=== PATIENT | female | born 1980 | race American Indian/Alaskan Native ===

== ENCOUNTER 2017-06-28 15:36 | Emergency (ER) | payer BC, OTHER ==
[2017-06-28 15:37] VITALS: BMI 32.8
[2017-06-28 15:44] VITALS: BP 143/83; PULSE 60; RESP 16; TEMP 97.7; O2SAT 100
--- NOTE | 2017-06-28 16:47 | RAD ---
PROCEDURE: Radiographs of the Lumbar Spine. HISTORY: low back pain No antecedent history of trauma. COMPARISON: No prior. FINDINGS: BONES: Mild levoscoliosis. No acute osseous findings DISC SPACES: Unremarkable. OTHER FINDINGS: None. IMPRESSION: No acute findings related to/accounting for the clinical presentation.
--- NOTE | 2017-06-28 16:50 | C.PDOC ---
History Of Present Illness 37 y/o female presents to ED with complaints of low back pain. Patient states she works at [employer] and today around 12:30pm she was lifting a heavy stack of papers when she felt a sharp pain on her lower back. Patient reports pain is worse with rotational movement. She took Naproxen with no relief [employer]. Patient denies direct trauma, fever, cough, sob, bowel/bladder incontinence, urinary retention, sensory changes in legs. Time Seen by Provider: 06/28/17 15:45 Chief Complaint (Nursing): Back Pain History Per: Patient History/Exam Limitations: no limitations Onset/Duration Of Symptoms: Days Current Symptoms Are (Timing): Still Present Quality Of Discomfort: "Pain" Severity: Moderate Exacerbating Factor(s): Movement Past Medical History Reviewed: Historical Data, Nursing Documentation, Vital Signs Vital Signs: Last Vital Signs Temp 97.7 F 06/28/17 15:40 Pulse 60 06/28/17 15:40 Resp 16 06/28/17 15:40 BP 143/83 06/28/17 15:40 Pulse Ox 100 06/28/17 17:37 - Medical History PMH: No Chronic Diseases Family History: States: No Known Family Hx - Social History Hx Alcohol Use: No Hx Substance Use: No - Immunization History Hx Tetanus Toxoid Vaccination: No Hx Influenza Vaccination: No Hx Pneumococcal Vaccination: No Review Of Systems Except As Marked, All Systems Reviewed And Found Negative. Constitutional: Negative for: Fever, Chills Respiratory: Negative for: Cough, Shortness of Breath Gastrointestinal: Negative for: Nausea, Vomiting, Abdominal Pain Genitourinary: Negative for: Dysuria, Frequency, Incontinence Musculoskeletal: Positive for: Back Pain Skin: Negative for: Rash Neurological: Negative for: Weakness, Numbness Physical Exam - Physical Exam Appears: Well, Non-toxic, Other (In mild pain) Skin: Normal Color, Warm, Dry, No Rash Head: Normacephalic Eye(s): bilateral: Normal Inspection Oral Mucosa: Moist Chest: Symmetrical Cardiovascular: Rhythm Regular Respiratory: Normal Breath Sounds, No Rales, No Rhonchi, No Wheezing Gastrointestinal/Abdominal: Normal Exam, Bowel Sounds, Soft, No Tenderness Back: Normal Inspection, No CVA Tenderness, No Vertebral Tenderness, No Paraspinal Tenderness Extremity: Normal ROM, No Calf Tenderness, No Deformity, No Swelling Extremity: Bilateral: Atraumatic, Normal Color And Temperature, Normal ROM Neurological/Psych: Oriented x3, Normal Motor, Normal Sensation Gait: Steady ED Course And Treatment O2 Sat by Pulse Oximetry: 100 (RA) Pulse Ox Interpretation: Normal - Other Rad LS spine X-Ray: Interpreted by Me, Viewed By Me, Read By Radiologist Interpretation: FINDINGS: BONES: Mild levoscoliosis. No acute osseous findings. DISC SPACES: Unremarkable. OTHER FINDINGS: None. IMPRESSION: No acute findings related to/accounting for the clinical presentation. Progress Note: Patient requesting Xray of LS spine - ordered. IM toradol and PO Valium given. 17:45- On reassessment, patient's pain has improved, and she is well appearing and able to ambulate normally. Xray of LS spine (-) for acute bony injury. Patient given Rxs for Naprosyn, Valium, Vicodin (instructed not to mix Valium and Vicodin). She was instructed to follow up with PMD/ clinic in 1-2 days, and understands she should return to ED if symptoms worsen. Patient being picked up by . Reevaluation Time: 17:00 Reassessment Condition: Unchanged (Patient reassessed, reports no improvement in pain. PO vicodin ordered.) Disposition Counseled Patient/Family Regarding: Studies Performed, Diagnosis, Need For Followup, Rx Given - Disposition Referrals: [facility] [Outside] Disposition: HOME/ ROUTINE Disposition Time: 17:40 Condition: STABLE Additional Instructions: FOLLOW UP WITH YOUR DOCTOR IN 1-2 DAYS USE MEDICATION NEEDED FOR PAIN RETURN TO ER IF SYMPTOMS WORSEN DO NOT MIX VICODIN WITH VALIUM Prescriptions: diaZEpam [Valium] 5 mg PO TID PRN #12 tab PRN Reason: Muscle Spasm Hydrocodone/Acetaminophen [Hydrocodon-Acetaminophen 5-325] 1 each PO Q6 PRN #12 tablet PRN Reason: Pain, Moderate (4-7) Naproxen [Naprosyn] 1 tab PO BID PRN #25 tab PRN Reason: Pain Instructions: Acute Low Back Pain (ED), Muscle Spasm (ED) Forms: [facility] (Honduran), Work Excuse Print Language: CITIZEN OF [place] - POA Present On Arrival: None - Clinical Impression Clinical Impression: Low back pain, Muscle spasm - Scribe Statement The provider has reviewed the documentation as recorded by the Kelbyibsuri Scanlon All medical record entries made by the Scribe were at my direction and personally dictated by me. I have reviewed the chart and agree that the record accurately reflects my personal performance of the history, physical exam, medical decision making, and the department course for this patient. I have also personally directed, reviewed, and agree with the discharge instructions and disposition.
[2017-06-28] MEDS ORDERED: Hydrocodone/Acetaminophen 5 mg /300 mg Tab PO STA (17:01)
[2017-06-28] MEDS ORDERED: Hydrocodone/Acetaminophen 5 mg /300 mg Tab PO ONE (17:08)
== END 2017-06-28 17:46 | disposition home or self-care (01) ==
LOC: C.ER 15:36
DX: M54.5 Low back pain (principal); M62.838 Other muscle spasm
CPT/HCPCS: 72100; 96372; 99283; J1885